=== PATIENT | female | born 1985 | race Caucasian/White ===

== ENCOUNTER 2017-10-02 01:13 | Inpatient (IN) | payer BC ==
[2017-10-02] MEDS ORDERED: Penicillin G Potassium IV* 5,000,000 UNITS in NS 0.9% 100 ML* 100 ML IVPB ONE (01:45)
[2017-10-02 01:57] LABS: ABS Basophils 0.1 10^3/ul (0-0.2); ABS Eosinophils 0.1 10^3/ul (0-0.6); ABS Monocytes 0.4 10^3/ul (0-0.8); ABS Neutrophils 5.5 10^3/ul (1.5-7.7); ABS Nucleated RBC 0 10^3/ul; Eosinophil % 0.9 % (0-6); Hematocrit 41 % (35-47); Hemoglobin 14.6 g/dl (12.0-16.0); Lymphocyte % 24.9 % (25-47); Mean Corpuscular HGB Conc 36 g/dl (31-36); Mean Corpuscular Hemoglobin 34 pg (27-31); Mean Corpuscular Volume 95 fL (80-97); Mean Platelet Volume 8.6 um3 (7.4-10.4); Nucleated Red Blood Cells % 0.1; Platelet Count 100 10^3/ul (150-450); Red Blood Count 4.32 10^6/ul (4.00-5.40); Red Cell Distribution Width 15 % (10.5-15); White Blood Count 8.1 10^3/ul (3.5-10.8)
--- NOTE | 2017-10-02 01:59 | HP ---
General Information - General Information Maternal Age: 32 Grav: 2 Para: 1 SAB: 0 IEA: 0 Estimated Due Date: 10/11/17 Determined By: LMP Gestational Age in Weeks and Days: 38 Weeks and 5 Days Maternal Blood Type and Rh: A Positive - Results this Serology/RPR Result: Non-Reactive Rubella Result: Immune HBsAg Result: Negative HIV Result: Negative GBS Culture Result: Positive Past Medical History Delivery History: Hx Uncomplicated Vaginal Delivery Pertinent Past Medical History: Non-Contributory Pertinent Past Surgical History: See Records - tonsillectomy Pertinent Family History: Non-Contributory - Antepartal Records Antepartal Records: Reviewed, Complicated by: - thrombocytopenia Review of Systems Constitutional: Uncomfortable CV Complaint: No Respiratory: Shortness of Breath: No Gastrointestinal: No Nausea/Vomiting, Normal Bowel Movement Genitourinary: No Dysuria, No Bleeding, No Leaking Fluid Musculoskeletal: Back Pain, Contractions Neurological: No Headache, No Visual Changes Movement: Normal Exam Allergies/Adverse Reactions: Allergies No Known Allergies Allergy (Verified 10/02/17 01:34) BP 112/71 T 97.1 HR 75 RR 20 O2 100 - Measurements Height: 5 ft 2 in Weight: 153 lb Weight in lbs: [id number] Body Mass Index (BMI): 28.0 Pre- Weight: 114 lb Weight Gained This : 39 lbs and 0 ozs - Exam Abdomen: No Upper Quadrant Pain Breast: Breast Exam Deferred CVA: No CVA Tenderness Extremities: No Edema Heart: Normal Rhythm/Heart Sounds HEENT: No Significant Findings Lungs: Clear Bilaterally Rectal: Rectal Exam Deferred Reflexes: - - No elicited Thyroid: - - WNL on entry to [facility] - Abdominal Exam Abdomen Exam: Non-Tender, Fundal Height Consistent with Dates - Ultrasound/Biophysical Profile Ultrasound Status: Not Done Targeted Exam Findings Estimated Weight: 7lb Cervical Exam: 6cm Effacement: 100% Station: +1 Presenting Part: Vertex Membrane Status: Intact Bleeding/Discharge: None EFM Findings - External Monitor Findings Baseline Heart Rate: 115 External Monitor Findings: Accelerations Present, No Pattern of Variable or Late Decelerations, Variability Moderate Contractions: Regular, Strong, 45-90 Seconds Contraction Frequency: Q 2-4 min Assessment/Plan - Reason for Visit Reason for Visit: IUP @ 38+5 weeks gestation, IBOW, no evidence metabolic acidemia - Obstetrical Risk Factors Obstetrical Risk Factors: GBS Positive - Plan Plan: Active Labor Plan Comment: Admit to L&D, epidural as desired. Begin PCN for GBS prophylaxis. Anticipate SVB - Date/Time of Admission Date of Admission: 10/02/17 Time of Admission: 01:45
[2017-10-02] MEDS ORDERED: OBEPIDURAL* 250 ML EPIDURAL ONE (02:00)
[2017-10-02] MEDS ORDERED: EPHEDrine (Pressors)* 50 MG/ML VIAL IV PUSH PRN (02:18)
[2017-10-02] MEDS ORDERED: Phenylephrine IV* 40 MCG/ML 10 ML SYRINGE IV PUSH PRN (02:18)
[2017-10-02] MEDS ORDERED: Sodium Citrate/Citric Acid* 15 ML UDC PO PRN (02:18)
[2017-10-02] MEDS ORDERED: Famotidine TAB* 20 MG PO PRN (02:18)
[2017-10-02] MEDS ORDERED: OBEPIDURAL* 250 ML EPIDURAL SCH (03:00)
[2017-10-02] MEDS ORDERED: Penicillin G Potassium IV* 2,500,000 UNITS in NS 0.9% 100 ML* 100 ML IVPB SCH (06:00)
[2017-10-02] MEDS ORDERED: Witch Hazel PAD* JAR TOPICAL PRN (06:29)
[2017-10-02] MEDS ORDERED: Glycerin ADULT SUPP PR PRN (06:29)
[2017-10-02] MEDS ORDERED: Dibucaine 1% 28.35 GM TUBE PR PRN (06:29)
[2017-10-02] MEDS ORDERED: OXYTOCIN* 10 UNITS/ML 1 ML VIAL ONE (06:30)
[2017-10-02] MEDS ORDERED: Phenylephrine IV* 40 MCG/ML 10 ML SYRINGE ONE (06:37)
[2017-10-02] MEDS ORDERED: Oxytocin in LR* 20 UNITS/1,000 ML BAG IVPB SCH (07:00)
[2017-10-02] MEDS: Ibuprofen TAB* 600 MG PO PRN ×3 (08:50→20:50)
[2017-10-02] MEDS: Docusate CAP* 100 MG PO SCH ×3 (08:51→20:50)
[2017-10-02] MEDS: Acetaminophen TAB* 325 MG PO PRN ×2 (12:11→18:16)
[2017-10-03] MEDS: Ibuprofen TAB* 600 MG PO PRN ×4 (03:21→21:16)
[2017-10-03 07:02] LABS: ABS Basophils 0.1 10^3/ul (0-0.2); ABS Eosinophils 0.1 10^3/ul (0-0.6); ABS Lymphocytes 1.6 10^3/ul (1.0-4.8); ABS Monocytes 0.3 10^3/ul (0-0.8); ABS Neutrophils 7.5 10^3/ul (1.5-7.7); ABS Nucleated RBC 0 10^3/ul; Eosinophil % 0.9 % (0-6); Hematocrit 40 % (35-47); Hemoglobin 14.2 g/dl (12.0-16.0); Mean Corpuscular HGB Conc 35 g/dl (31-36); Mean Corpuscular Hemoglobin 34 pg (27-31); Mean Corpuscular Volume 96 fL (80-97); Mean Platelet Volume 8.7 um3 (7.4-10.4); Nucleated Red Blood Cells % 0; Platelet Count 108 10^3/ul (150-450); Red Blood Count 4.21 10^6/ul (4.00-5.40); Red Cell Distribution Width 15 % (10.5-15); White Blood Count 9.6 10^3/ul (3.5-10.8)
[2017-10-03] MEDS ORDERED: Ferrous Gluconate TAB* 324 MG TAB PO SCH (09:00)
[2017-10-03] MEDS: Docusate CAP* 100 MG PO SCH ×2 (12:43→14:37)
[2017-10-03 19:52] VITALS: BP 106/67
[2017-10-04] MEDS: Ibuprofen TAB* 600 MG PO PRN ×2 (03:08→09:05)
[2017-10-04] MEDS: Docusate CAP* 100 MG PO SCH (09:05)
== END 2017-10-04 11:50 | disposition home or self-care (01) | DRG 560 ==
LOC: MCHOBOUT 01:13 → MCHOB 01:43
PROVIDERS: ADMIT Midwife; ATTEND Midwife
PROC: 10E0XZZ Delivery of Products of Conception, External Approach (ICD-10-PCS; principal; 2017-10-02)
PROC: 4A1HXCZ Monitoring of Products of Conception, Cardiac Rate, External Approach (ICD-10-PCS; 2017-10-02)
PROC: 0HQ9XZZ Repair Perineum Skin, External Approach (ICD-10-PCS; 2017-10-02)
PROC: 10907ZC Drainage of Amniotic Fluid, Therapeutic from Products of Conception, Via Natural or Artificial Opening (ICD-10-PCS; 2017-10-02)
DX: O99.12 Other diseases of the blood and blood-forming organs and certain disorders involving the immune mechanism complicating childbirth (principal); O70.0 First degree perineal laceration during delivery; Z37.0 Single live birth; O99.824 Streptococcus B carrier state complicating childbirth; D69.6 Thrombocytopenia, unspecified; Z3A.38 38 weeks gestation of pregnancy; O69.81X0 Labor and delivery complicated by cord around neck, without compression, not applicable or unspecified
CPT/HCPCS: 36415; 85025; 86850; 86900; 86901; A9270-GY; J2540; J2590

== ENCOUNTER 2022-03-16 09:56 | Inpatient (IN) ==
[2022-03-16] MEDS ORDERED: Buffered Lidocaine 1% SYRIN 1 ml INTRADERM ONE (10:24)
[2022-03-16] MEDS ORDERED: Lactated Ringers 1000 ml BAG 1,000 ML IV ONE ×2 (10:27→17:47)
[2022-03-16 11:24] LABS: ABS Eosinophils 0.1 10^3/ul (0-0.6); ABS Lymphocytes 1.3 10^3/ul (1.0-4.8); ABS Monocytes 0.6 10^3/ul (0-0.8); ABS Neutrophils 7.8 10^3/ul (1.5-7.7); Hematocrit 38 % (35-47); Hemoglobin 13.2 g/dL (12.0-16.0); Lymphocyte % 13.8 %; Mean Corpuscular HGB Conc 35 g/dL (31-36); Mean Corpuscular Hemoglobin 34 pg (27-31); Mean Corpuscular Volume 97 fL (80-97); Platelet Count 117 10^3/uL (150-450); Red Blood Count 3.92 10^6 /uL (3.70-4.87); Red Cell Distribution Width 14 % (10-15); White Blood Count 9.8 10^3/uL (3.5-10.8)
[2022-03-16 11:51] LABS: Urine Benzodiazepine Screen None Detected (None Detect); Urine Cannabinoids Screen None Detected (None Detect); Urine Opiates Screen None Detected (None Detect)
[2022-03-16] MEDS ORDERED: Dinoprostone 10 MG VAG.SUPP VAGINAL ONE (12:18)
[2022-03-16] MEDS: Lactated Ringers 1000 ml BAG 1,000 ML IV SCH ×2 (17:08→21:24)
[2022-03-16] MEDS ORDERED: EPINEPHrine SULFITE FREE 1 MG/ML ONE (17:11)
[2022-03-16] MEDS ORDERED: Lidocaine 1% VIAL 10 MG/ML VIAL 30 ML ONE (17:11)
[2022-03-16] MEDS ORDERED: OBEPIDURAL (200 ML) 200 ML EPIDURAL ONE (17:14)
[2022-03-16] MEDS ORDERED: Lactated Ringers 1000 ml BAG 500 ML IV PRN (17:47)
[2022-03-16] MEDS ORDERED: Sodium Citrate/Citric Acid LIQ 15 ML UDC PO PRN (17:47)
[2022-03-16] MEDS ORDERED: Phenylephrine 40 mcg/mL 10mL (400mcg) SYRINGE IV PUSH PRN ×2 (17:47)
[2022-03-16] MEDS ORDERED: OBEPIDURAL (200 ML) 200 ML EPIDURAL SCH (18:00)
[2022-03-16] MEDS ORDERED: Lactated Ringers 1000 ml BAG 1,000 ML IV SCH ×2 (18:00)
[2022-03-16 19:10] LABS: Urine Appearance Clear; Urine Bilirubin Negative (Negative); Urine Blood Negative (Negative); Urine Color Straw; Urine Glucose Negative (Negative); Urine Ketones Negative (Negative); Urine Nitrite Negative (Negative); Urine Protein Negative (Negative); Urine Specific Gravity 1.009 (1.002-1.030); Urine Urobilinogen Negative (Negative)
[2022-03-17] MEDS: Lactated Ringers 1000 ml BAG 1,000 ML IV SCH (04:04)
[2022-03-17] MEDS ORDERED: Witch Hazel PAD JAR TOPICAL PRN (05:43)
[2022-03-17] MEDS ORDERED: Glycerin ADULT 2.4 gm SUPP PR PRN (05:43)
[2022-03-17] MEDS ORDERED: Dibucaine 1% OINT 28.35 GM TUBE PR PRN (05:43)
[2022-03-17] MEDS ORDERED: Lactated Ringers 1000 ml BAG 1,000 ML IV SCH (06:00)
[2022-03-17] MEDS ORDERED: Oxytocin 10 UNITS/ML 1 ML VIAL IM ONE (07:52)
[2022-03-17] MEDS ORDERED: Oxytocin 10 UNITS/ML 1 ML VIAL ONE (13:14)
[2022-03-18 06:58] LABS: ABS Eosinophils 0.2 10^3/ul (0-0.6); ABS Lymphocytes 1.3 10^3/ul (1.0-4.8); ABS Monocytes 0.5 10^3/ul (0-0.8); ABS Neutrophils 8.4 10^3/ul (1.5-7.7); Eosinophil % 1.7 %; Hematocrit 33 % (35-47); Hemoglobin 11.7 g/dL (12.0-16.0); Lymphocyte % 12.6 %; Mean Corpuscular HGB Conc 35 g/dL (31-36); Mean Corpuscular Hemoglobin 34 pg (27-31); Mean Corpuscular Volume 97 fL (80-97); Mean Platelet Volume 8.6 fL (7.4-10.4); Nucleated Red Blood Cells % 0.1; Platelet Count 96 10^3/uL (150-450); Red Blood Count 3.41 10^6 /uL (3.70-4.87); Red Cell Distribution Width 14 % (10-15); White Blood Count 10.4 10^3/uL (3.5-10.8)
[2022-03-18 09:19] VITALS: BP 112/69
[2022-03-18] MEDS ORDERED: Tetan/Diph/Pertus SYR(Tdap) 0.5 ML SYR(BOOSTRIX) use SYR contains LATEX IM ONE (10:00)
== END 2022-03-18 12:40 | disposition home or self-care (01) | DRG 560 ==
LOC: MCHOBOUT 09:56 → MCHOB 10:26
PROVIDERS: ADMIT Midwife; ATTEND Midwife